=== PATIENT | female | born 1985 | race Two or more races ===

== ENCOUNTER 2019-10-25 09:34 | Emergency (ER) | payer SELFPAY ==
--- NOTE | 2019-10-25 11:01 | EDM.PDOC ---
ED HPI GENERAL MEDICAL PROBLEM - General Chief Complaint: Skin Complaint Stated Complaint: LUMP IN BREAST Time Seen by Provider: 10/25/19 10:15 Source of Information: Reports: Patient, RN Notes Reviewed - History of Present Illness INITIAL COMMENTS - FREE TEXT/NARRATIVE: 34-year-old female has been having some mild discomfort of left side of her left breast for about 4 to 5 months. Last day or so she is started feeling what she believes is a "lump or area of swelling left breast. Her big reason for concern in addition to the above symptoms is that there is strong history of breast cancer in her family, 2 aunts and also a grandparent. She is not been otherwise ill. She is not currently breast-feeding. No fever chills nausea or vomiting. No chest pain or difficulty breathing. 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: Musculoskeletal History: Reports: Fibromyalgia Other Musculoskeletal History: dx 2 months ago Neurological History: Reports: None Psychiatric History: Reports: None Endocrine/Metabolic History: Reports: None Hematologic History: Reports: None Immunologic History: Reports: None Oncologic (Cancer) History: Reports: None Dermatologic History: Reports: None - Infectious Disease History Infectious Disease History: Reports: Influenza - Past Surgical History Head Surgeries/Procedures: Reports: None HEENT Surgical History: Reports: None GI Surgical History: Reports: Cholecystectomy Social & Family History - Family History HEENT: Reports: None Cardiac: Reports: Hypertension Respiratory: Reports: None GI: Reports: None : Reports: None OBGYN: Reports: None Musculoskeletal: Reports: None Neurological: Reports: None Endocrine/Metabolic: Reports: Diabetes, type II Immunologic: Reports: None Oncologic: Reports: Breast - Tobacco Use Smoking Status *Q: Never Smoker - Caffeine Use Caffeine Use: Reports: None - Recreational Drug Use Recreational Drug Use: No ED ROS GENERAL - Review of Systems Review Of Systems: See Below Constitutional: Denies: Fever, Chills HEENT: Reports: No Symptoms Respiratory: Reports: No Symptoms Cardiovascular: Reports: No Symptoms GI/Abdominal: Reports: No Symptoms Musculoskeletal: Reports: No Symptoms Skin: Denies: Rash, Erythema Neurological: Reports: No Symptoms ED EXAM, SKIN/RASH Exam: See Below General Appearance: Alert, Anxious Head: Atraumatic. No: Facial Swelling Neck: Supple Respiratory/Chest: No Respiratory Distress, Lungs Clear, Normal Breath Sounds, Other (breast exam: No visible swelling, no warmth or erythema, very mild density palpable lateral L breast, nontender) Cardiovascular: Regular Rate, Rhythm Course - Vital Signs Last Recorded V/S: Last Vital Signs Temp 97.8 F 10/25/19 09:44 Pulse 93 10/25/19 09:44 Resp 16 10/25/19 09:44 BP 119/75 10/25/19 09:44 Pulse Ox 97 10/25/19 09:44 - Re-Assessments/Exams Free Text/Narrative Re-Assessment/Exam: 10/25/19 19:35 have written order for mamogram. Her worry is accentuated by strong family hx of breast cancer in her family. Discharge instr. as documented. Departure - Departure Time of Disposition: 10:58 Disposition: Home, Self-Care 01 Condition: Fair Clinical Impression: Breast pain, left, Breast lump in female - Discharge Information Instructions: Breast Tenderness Referrals: PCP,None [Primary Care Provider] - Forms: ED Department Discharge Additional Instructions: Order has been sent to Radiology for breast mamogram. Radiology should call you Sunday morning to give you a time to come in and have that done. I you have not heard from Radiology by 9 AM this coming sunday call ED at [phone] to let us make sure that appointment gets made in a timely manor. You will need to follow up with a clinic provider for results 1 day or more after the mamogram has been done. Call clinic for appointment. Sepsis Event Note - Evaluation Sepsis Screening Result: No Definite Risk - Focused Exam Vital Signs: Vital Signs Temp Pulse Resp BP Pulse Ox 10/25/19 09:44 97.8 F 93 16 119/75 97 Date Exam was Performed: 10/25/19 Time Exam was Performed: 19:31
== END 2019-10-25 11:15 | disposition home or self-care (01) ==
LOC: JD.ED 09:34
DX: N63.20 Unspecified lump in the left breast, unspecified quadrant (principal); N64.4 Mastodynia; Z79.899 Other long term (current) drug therapy
CPT/HCPCS: 99282

== ENCOUNTER 2020-05-15 14:37 | Emergency (ER) | payer SELFPAY ==
--- NOTE | 2020-05-15 15:38 | EDM.PDOC ---
ED HPI GENERAL MEDICAL PROBLEM - General Chief Complaint: Respiratory Problem Stated Complaint: COVID + SOB AND CHILLS Time Seen by Provider: 05/15/20 15:20 Source of Information: Reports: Patient History Limitations: Reports: No Limitations - History of Present Illness INITIAL COMMENTS - FREE TEXT/NARRATIVE: Patient is a 34-year-old female with a history of COVID for the past 13 days who presents to the ED complaining of sinus congestion, runny nose, postnasal drip, mild sore throat, dry cough with no shortness of breath, chest pain, or fever. Patient has been mildly fatigued. Patient has been drinking fluids. She notes her appetite is slightly poor. She is had no voiding symptoms. Intermittent diarrhea noted. Fevers and body aches have resolved. She is here for further evaluation with concerns of continued sinus congestion, headache, and fatigue. Patient has a history of fibromyalgia currently on meloxicam and gabapentin. Also reports a history of hypothyroidism. She denies being . She is on control. Headache Pain Score (Numeric/FACES): 10 - Related Data Allergies Allergy/AdvReac Type Severity Reaction Status Date / Time No Known Allergies Allergy Verified 05/15/20 14:57 Home Meds: Home Meds Gabapentin [Neurontin] 600 mg PO BID 10/25/19 [History] Meloxicam [Mobic] 15 mg PO DAILY 10/25/19 [History] Albuterol [Proventil HFA] 2 puff INH Q4H PRN #1 inhaler 05/15/20 [Rx] predniSONE [Prednisone] 2 tab PO QAM #10 tablet 05/15/20 [Rx] Past Medical History HEENT History: Reports: None Cardiovascular History: Reports: None Respiratory History: Reports: None Gastrointestinal History: Reports: Cholelithiasis Genitourinary History: Reports: 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: Musculoskeletal History: Reports: Fibromyalgia Other Musculoskeletal History: dx 2 months ago Neurological History: Reports: None Psychiatric History: Reports: None Endocrine/Metabolic History: Reports: None, Hypothyroidism Hematologic History: Reports: None Immunologic History: Reports: None Oncologic (Cancer) History: Reports: None Dermatologic History: Reports: None - Infectious Disease History Infectious Disease History: Reports: Influenza - Past Surgical History Head Surgeries/Procedures: Reports: None HEENT Surgical History: Reports: None GI Surgical History: Reports: Cholecystectomy Social & Family History - Family History HEENT: Reports: None Cardiac: Reports: Hypertension Respiratory: Reports: None GI: Reports: None : Reports: None OBGYN: Reports: None Musculoskeletal: Reports: None Neurological: Reports: None Endocrine/Metabolic: Reports: Diabetes, type II Immunologic: Reports: None Oncologic: Reports: Breast - Tobacco Use Smoking Status *Q: Never Smoker Second Hand Smoke Exposure: No - Caffeine Use Caffeine Use: Reports: None - Recreational Drug Use Recreational Drug Use: No ED ROS GENERAL - Review of Systems Review Of Systems: Comprehensive ROS is negative, except as noted in HPI. ED EXAM, GENERAL - Physical Exam Exam: See Below Exam Limited By: No Limitations General Appearance: Alert, WD/WN, No Apparent Distress Eye Exam: Bilateral Eye: Normal Inspection Ears: Normal External Exam, Normal Canal, Hearing Grossly Normal, Normal TMs Nose: Normal Inspection, Normal Mucosa, Clear Rhinorrhea Throat/Mouth: Normal Inspection, Normal Oropharynx, Normal Voice, No Airway Compromise, Other (No exudates, redness, or swelling noted. Postnasal drip noted.) Head: Atraumatic, Normocephalic Neck: Normal Inspection, Supple, Non-Tender, Full Range of Motion, Lymphadenopathy (L), Lymphadenopathy (R) Respiratory/Chest: No Respiratory Distress, Lungs Clear, Normal Breath Sounds, No Accessory Muscle Use, Chest Non-Tender Cardiovascular: Normal Peripheral Pulses, Regular Rate, Rhythm, No Murmur Peripheral Pulses: 2+: Radial (R) GI/Abdominal: Normal Bowel Sounds, Soft, Non-Tender Extremities: Normal Inspection Neurological: Alert, Oriented, Normal Cognition, No Motor/Sensory Deficits Psychiatric: Normal Affect, Normal Mood Skin Exam: Warm, Dry, Intact, Normal Color, No Rash Course - Vital Signs Last Recorded V/S: Last Vital Signs Temp 98.1 F 05/15/20 14:49 Pulse 89 05/15/20 14:49 Resp 16 05/15/20 14:49 BP 113/69 05/15/20 14:49 Pulse Ox 95 05/15/20 14:49 - Radiology Interpretation Free Text/Narrative:: Vital signs blood pressure 113/69, heart rate 89, respiratory rate 16, O2 sats 95% on room air. Temperature 98.1. Patient has been positive for COVID for 13 days. Complains of mild headache, sinus congestion, mild sore throat, and persisting dry cough. She has no shortness of breath, chest pain, fever, nausea or vomiting, or dysuria. She has been drinking the fluids. Appetite is improving. She is wondering why symptoms are persisting. Based on exam and vital signs. I do not believe patient would warrant labs or imaging at this time. I believe this is the residual effects of COVID 19. I do not believe she has pneumonia since she is afebrile and not short of breath. I have opted to treat the patient with prednisone 40 mg 1 tab every day for 5 days. Proventil inhaler 2 puffs every 4 hours as needed for cough. She will continue with Mucinex 600 mg 1 tab twice a day. She will start Flonase 1 spray to each nare twice a day. I have asked the patient to use Tylenol on a more frequent basis. Return precautions were discussed with the patient. She voiced her understanding's and has no further questions or concerns. She agrees with plan. Will follow up with PCP later this week if symptoms persist. I suspect symptoms should improve over the next week. Departure - Departure Time of Disposition: 15:33 Disposition: Home, Self-Care 01 Condition: Good Clinical Impression: COVID-19 - Discharge Information Prescriptions: predniSONE [Prednisone] 2 tab PO QAM #10 tablet Albuterol [Proventil HFA] 2 puff INH Q4H PRN #1 inhaler PRN Reason: Cough Instructions: COVID-19 Frequently Asked Questions, Upper Respiratory Infection, Adult, [id number], Prevent the Spread of COVID-19 if You Are Sick - [facility] Forms: ED Department Discharge Additional Instructions: Due to the persistent dry cough I will go ahead and prescribe you prednisone 40 mg 1 tab every day x5 days and also albuterol inhaler 2 puffs every 4 hours. Just taking Tylenol 650 mg every 4-6 hours. Utilize Flonase 1 spray to each nare twice a day. Ensure adequate rest and eat a balanced diet. This is day 13 and you should see symptoms gradually improving over the next week. No lab work is obtained since you are not short of breath and you have not been feverish. Please follow-up with your PCP over the next week if symptoms persist. If you develop any new or worsening symptoms please return back to the ED for further evaluation. Sepsis Event Note (ED) - Evaluation Sepsis Screening Result: No Definite Risk - Focused Exam Vital Signs: Vital Signs Temp Pulse Resp BP Pulse Ox 05/15/20 14:49 98.1 F 89 16 113/69 95
== END 2020-05-15 16:00 | disposition home or self-care (01) ==
LOC: JD.ED 14:37
DX: U07.1 COVID-19 (principal); Z90.49 Acquired absence of other specified parts of digestive tract
CPT/HCPCS: 99283

== ENCOUNTER 2020-05-20 09:00 | Emergency (ER) | payer SELFPAY ==
[2020-05-20] MEDS ORDERED: diphenhydrAMINE 50 MG/ML SDV IM ONE (09:32)
[2020-05-20] MEDS ORDERED: Ketorolac 60 MG/2 ML SDV IM ONE (09:32)
[2020-05-20] MEDS ORDERED: Metoclopramide 10 MG/2 ML SDV IM ONE (09:32)
--- NOTE | 2020-05-20 09:42 | EDM.PDOC ---
ED HPI GENERAL MEDICAL PROBLEM - General Chief Complaint: Headache Stated Complaint: COVID + Time Seen by Provider: 05/20/20 09:08 Source of Information: Reports: Patient History Limitations: Reports: No Limitations - History of Present Illness INITIAL COMMENTS - FREE TEXT/NARRATIVE: The patient presents with a cough, congestion and sore throat. About 23 days ago her tested positive for COVID 19. Two days later she started having symptoms. These symptoms have not gotten much better. She also has a bad headache in the frontal region. She has no numbness or weakness. She has a history of hypothyroidism. She has no history of asthma. Onset: Gradual Duration: Week(s): Location: Reports: Head Severity: Moderate Improves with: Reports: None Worsens with: Reports: None Associated Symptoms: Reports: Cough, Headaches. Denies: Chest Pain, Fever/Chills, Nausea/Vomiting, Shortness of Breath Headache Pain Score (Numeric/FACES): 8 - Related Data Allergies Allergy/AdvReac Type Severity Reaction Status Date / Time No Known Allergies Allergy Verified 05/15/20 14:57 Home Meds: Home Meds Gabapentin [Neurontin] 600 mg PO BID 10/25/19 [History] Meloxicam [Mobic] 15 mg PO DAILY 10/25/19 [History] Albuterol [Proventil HFA] 2 puff INH Q4H PRN #1 inhaler 05/15/20 [Rx] predniSONE [Prednisone] 2 tab PO QAM #10 tablet 05/15/20 [Rx] Past Medical History HEENT History: Reports: None Cardiovascular History: Reports: None Respiratory History: Reports: None Gastrointestinal History: Reports: Cholelithiasis Genitourinary History: Reports: 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: Musculoskeletal History: Reports: Fibromyalgia Other Musculoskeletal History: dx 2 months ago Neurological History: Reports: None Psychiatric History: Reports: None Endocrine/Metabolic History: Reports: Hypothyroidism Hematologic History: Reports: None Immunologic History: Reports: None Oncologic (Cancer) History: Reports: None Dermatologic History: Reports: None - Infectious Disease History Infectious Disease History: Reports: Chicken Pox, Novel Coronavirus - Past Surgical History GI Surgical History: Reports: Cholecystectomy Endocrine Surgical History: Reports: Thyroidectomy Social & Family History - Family History HEENT: Reports: None Cardiac: Reports: Hypertension Respiratory: Reports: None GI: Reports: None : Reports: None OBGYN: Reports: None Musculoskeletal: Reports: None Neurological: Reports: None Endocrine/Metabolic: Reports: Diabetes, type II Immunologic: Reports: None Oncologic: Reports: Breast - Tobacco Use Smoking Status *Q: Never Smoker Second Hand Smoke Exposure: No - Caffeine Use Caffeine Use: Reports: Coffee - Recreational Drug Use Recreational Drug Use: No ED ROS GENERAL - Review of Systems Review Of Systems: See Below Constitutional: Reports: No Symptoms HEENT: Reports: No Symptoms Respiratory: Reports: No Symptoms Cardiovascular: Reports: No Symptoms Endocrine: Reports: No Symptoms GI/Abdominal: Reports: No Symptoms : Reports: No Symptoms Musculoskeletal: Reports: No Symptoms Skin: Reports: No Symptoms Neurological: Reports: Headache - Physical Exam Exam: See Below Exam Limited By: No Limitations General Appearance: Alert, No Apparent Distress Ears: Normal External Exam Nose: Normal Inspection Head Exam: Atraumatic, Normocephalic Neck: Normal Inspection Respiratory/Chest: No Respiratory Distress, Lungs Clear, Normal Breath Sounds Cardiovascular: Regular Rate, Rhythm, No Edema, No Murmur GI/Abdominal: Normal Bowel Sounds, Soft, Non-Tender, No Organomegaly Neuro Exam (Abbreviated): Alert, Oriented, No Motor/Sensory Deficits Course - Vital Signs Last Recorded V/S: Last Vital Signs Temp 98.1 F 05/20/20 09:00 Pulse 91 05/20/20 09:00 Resp 24 H 05/20/20 09:00 BP 114/76 05/20/20 09:00 Pulse Ox 99 05/20/20 09:00 - Orders/Labs/Meds Orders: Active Orders 24 hr Category Date Time Status Ketorolac [Toradol] Med 05/20/20 09:32 Once 60 mg IM ONETIME ONE Metoclopramide [Reglan] Med 05/20/20 09:32 Once 10 mg IM ONETIME ONE diphenhydrAMINE [Benadryl] Med 05/20/20 09:32 Once 50 mg IM ONETIME ONE Medication Orders Diphenhydramine HCl (Benadryl) 50 mg IM ONETIME ONE Stop: 05/20/20 09:33 Ketorolac Tromethamine (Toradol) 60 mg IM ONETIME ONE Stop: 05/20/20 09:33 Metoclopramide HCl (Reglan) 10 mg IM ONETIME ONE Stop: 05/20/20 09:33 Meds: Medications Generic Name Dose Route Start Last Admin Trade Name Valdo PRN Reason Stop Dose Admin Diphenhydramine HCl 50 mg 05/20/20 09:32 Benadryl IM 05/20/20 09:33 ONETIME ONE Ketorolac Tromethamine 60 mg 05/20/20 09:32 Toradol IM 05/20/20 09:33 ONETIME ONE Metoclopramide HCl 10 mg 05/20/20 09:32 Reglan IM 05/20/20 09:33 ONETIME ONE - Re-Assessments/Exams Free Text/Narrative Re-Assessment/Exam: 05/20/20 09:37 Her oxygen saturations are great here. I think she is doing good. I will give her toradol 60mg IM, benadryl 50mg IM and reglan 10mg IM for her headache. Departure - Departure Time of Disposition: 09:45 Disposition: Home, Self-Care 01 Condition: Good Clinical Impression: COVID-19 Headache Qualifiers: Headache type: other headache syndrome Qualified Code(s): G44.89 - Other headache syndrome - Discharge Information *PRESCRIPTION DRUG MONITORING PROGRAM REVIEWED*: Not Applicable *COPY OF PRESCRIPTION DRUG MONITORING REPORT IN PATIENT SHAGGY: Not Applicable Referrals: Lili Thomas, [employer]ER [Nurse Practitioner] - 1 Week Additional Instructions: Take tylenol or motrin for pain or fever. Drink plenty of fluids. Please return if you are worse. Sepsis Event Note (ED) - Evaluation Sepsis Screening Result: No Definite Risk - Focused Exam Vital Signs: Vital Signs Temp Pulse Resp BP Pulse Ox 05/20/20 09:00 98.1 F 91 24 H 114/76 99 - My Orders Last 24 Hours: My Active Orders 05/20/20 09:32 Ketorolac [Toradol] 60 mg IM ONETIME ONE Metoclopramide [Reglan] 10 mg IM ONETIME ONE diphenhydrAMINE [Benadryl] 50 mg IM ONETIME ONE - Assessment/Plan Last 24 Hours: My Active Orders 05/20/20 09:32 Ketorolac [Toradol] 60 mg IM ONETIME ONE Metoclopramide [Reglan] 10 mg IM ONETIME ONE diphenhydrAMINE [Benadryl] 50 mg IM ONETIME ONE
== END 2020-05-20 10:20 | disposition home or self-care (01) ==
LOC: JD.ED 09:00
DX: U07.1 COVID-19 (principal); G44.89 Other headache syndrome; Z79.899 Other long term (current) drug therapy
CPT/HCPCS: 96372; 99283; J1200; J1885; J2765

== ENCOUNTER 2020-05-25 09:11 | Emergency (ER) | payer SELFPAY ==
[2020-05-25] MEDS ORDERED: FLU VACC QS2020-21(6MOS UP)/PF 60 MCG/0.5 ML SYRINGE IM ONE (09:45)
--- NOTE | 2020-05-25 11:32 | EDM.PDOC ---
ED HPI GENERAL MEDICAL PROBLEM - General Chief Complaint: Respiratory Problem Stated Complaint: COVID + /NOT FEELING WELL Time Seen by Provider: 05/25/20 10:27 - History of Present Illness INITIAL COMMENTS - FREE TEXT/NARRATIVE: 34-year-old female presents the emergency room not getting any better. Patient's was diagnosed with COVID 26 days ago he got better but the patient did not. Patient has never been actually tested for COVID but was assumed to be positive. She is still coughing not as bad as she used to. What is bothering her most today she still has dry uncomfortable throat and upper airway congestion. Despite having the cough she really denies any chest pain or chest pressure and certainly no shortness of breath. She had some loose stools early on with the illness but this seems to have completely resolved. At this time the patient completely denies any possibility of . Throat Pain Score (Numeric/FACES): 9 - Related Data Allergies Allergy/AdvReac Type Severity Reaction Status Date / Time No Known Allergies Allergy Verified 05/25/20 09:26 Home Meds: Home Meds Gabapentin [Neurontin] 600 mg PO DAILY 10/25/19 [History] Meloxicam [Mobic] 15 mg PO DAILY 10/25/19 [History] Albuterol [Proventil HFA] 2 puff INH Q4H PRN #1 inhaler 05/15/20 [Rx] Levothyroxine [Synthroid] 1 tab PO DAILY 05/25/20 [History] Past Medical History HEENT History: Reports: None Cardiovascular History: Reports: None Respiratory History: Reports: None Gastrointestinal History: Reports: Cholelithiasis Genitourinary History: Reports: None [employer]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: Musculoskeletal History: Reports: Fibromyalgia Other Musculoskeletal History: dx 2 months ago Neurological History: Reports: None Psychiatric History: Reports: None Endocrine/Metabolic History: Reports: Hypothyroidism Hematologic History: Reports: None Immunologic History: Reports: None Oncologic (Cancer) History: Reports: None Dermatologic History: Reports: None - Infectious Disease History Infectious Disease History: Reports: Chicken Pox - Past Surgical History Head Surgeries/Procedures: Reports: None GI Surgical History: Reports: Cholecystectomy Endocrine Surgical History: Reports: Thyroidectomy Social & Family History - Family History HEENT: Reports: None Cardiac: Reports: Hypertension Respiratory: Reports: None GI: Reports: None : Reports: None OBGYN: Reports: None Musculoskeletal: Reports: None Neurological: Reports: None Endocrine/Metabolic: Reports: Diabetes, type II Immunologic: Reports: None Oncologic: Reports: Breast - Tobacco Use Tobacco Use Status *Q: Never Tobacco User Second Hand Smoke Exposure: No - Caffeine Use Caffeine Use: Reports: None - Recreational Drug Use Recreational Drug Use: No ED ROS GENERAL - Review of Systems Review Of Systems: See Below Constitutional: Reports: Weakness, Fatigue. Denies: No Symptoms, Fever, Chills HEENT: Reports: Rhinitis, Throat Pain Respiratory: Reports: Cough. Denies: No Symptoms, Shortness of Breath, Sputum Cardiovascular: Reports: No Symptoms Endocrine: Reports: Fatigue GI/Abdominal: Reports: No Symptoms : Reports: No Symptoms Musculoskeletal: Reports: No Symptoms Skin: Reports: No Symptoms Neurological: Reports: No Symptoms ED EXAM, GENERAL - Physical Exam Exam: See Below Exam Limited By: No Limitations General Appearance: Alert, No Apparent Distress Eye Exam: Bilateral Eye: Normal Inspection Ears: Normal External Exam, Normal Canal, Hearing Grossly Normal, Normal TMs Nose: Normal Inspection, Normal Mucosa, No Blood Throat/Mouth: Normal Inspection, Normal Lips, Normal Teeth, Normal Gums, Normal Oropharynx, Normal Voice, No Airway Compromise Head: Atraumatic, Normocephalic Neck: Normal Inspection, Supple, Non-Tender, Full Range of Motion. No: Lymphadenopathy (L), Lymphadenopathy (R) Respiratory/Chest: No Respiratory Distress, Lungs Clear, Normal Breath Sounds Cardiovascular: Regular Rate, Rhythm, No Edema, No Murmur GI/Abdominal: Normal Bowel Sounds, Soft, Non-Tender Back Exam: Normal Inspection. No: CVA Tenderness (L), CVA Tenderness (R) Extremities: Normal Inspection, No Pedal Edema Neurological: Alert, Oriented, Normal Cognition Course - Vital Signs Last Recorded V/S: Last Vital Signs Temp 37.2 C 05/25/20 09:20 Pulse 103 H 05/25/20 09:20 Resp 18 05/25/20 09:20 BP 115/92 H 05/25/20 09:20 Pulse Ox 99 05/25/20 09:20 - Orders/Labs/Meds Orders: Active Orders 24 hr Category Date Time Status Influenza Vaccine Charge [RC] .DISCHARGE Care 05/25/20 09:36 Active Chest 1V Frontal [CR] Stat Exams 10/13/20 11:15 Taken CORONAVIRUS COVID-19 PCR PHL Stat Lab 05/25/20 11:54 Ordered CULTURE THROAT [RM] Stat Lab 05/25/20 13:11 Ordered Isolation [COMM] Routine Oth 05/25/20 11:17 Ordered Labs: Laboratory Tests 05/25/20 05/25/20 05/25/20 Range/Units 11:34 11:34 11:34 WBC 7.64 (3.98-10.04) K/mm3 RBC 4.28 (3.98-5.22) M/mm3 Hgb 12.7 (11.2-15.7) gm/dl Hct 39.5 (34.1-44.9) % MCV 92.3 (79.4-94.8) fl MCH 29.7 (25.6-32.2) pg MCHC 32.2 (32.2-35.5) g/dl RDW Std Deviation 45.9 (36.4-46.3) fL Plt Count 320 (182-369) K/mm3 MPV 10.3 (9.4-12.3) fl Neutrophils % (Manual) 57 (40-60) % Band Neutrophils % 0 (0-10) % Lymphocytes % (Manual) 33 (20-40) % Atypical Lymphs % 0 % Monocytes % (Manual) 9 (2-10) % Eosinophils % (Manual) 1 (0.7-5.8) % Basophils % (Manual) 0 L (0.1-1.2) Platelet Estimate Adequate RBC Morph Comment Normal Sodium 139 (136-145) mEq/L Potassium 4.3 (3.5-5.1) mEq/L Chloride 104 (98-107) mEq/L Carbon Dioxide 26 (21-32) mEq/L Anion Gap 13.3 (5-15) BUN 13 (7-18) mg/dL Creatinine 0.7 (0.55-1.02) mg/dL Est Cr Clr Drug Dosing 94.56 mL/min Estimated GFR (MDRD) > 60 (>60) mL/min BUN/Creatinine Ratio 18.6 H (14-18) Glucose 91 (74-106) mg/dL Calcium 8.9 (8.5-10.1) mg/dL Ferritin 20 (8-252) ng/ml Total Bilirubin 0.3 (0.2-1.0) mg/dL AST 27 (15-37) U/L ALT 52 (14-59) U/L Alkaline Phosphatase 61 (46-116) U/L Lactate Dehydrogenase 122 (81-234) U/L C-Reactive Protein <0.2 (<1.0) mg/dL Total Protein 6.8 (6.4-8.2) g/dl Albumin 3.5 (3.4-5.0) g/dl Globulin 3.3 gm/dL Albumin/Globulin Ratio 1.1 (1-2) Meds: Medications Discontinued Medications Generic Name Dose Route Start Last Admin Trade Name Freq PRN Reason Stop Dose Admin Influenza Virus Vaccine 60 mcg 05/25/20 09:45 Fluzone Quad [id number] Syringe IM 05/25/20 09:46 .ONCE ONE - Re-Assessments/Exams Free Text/Narrative Re-Assessment/Exam: 05/25/20 13:12 X-rays unremarkable laboratory evaluation is unremarkable. COVID screen is pending and throat culture pending. Departure - Departure Time of Disposition: 13:13 Disposition: Home, Self-Care 01 Clinical Impression: Pharyngitis, Viral illness - Discharge Information Referrals: PCP,None [Primary Care Provider] - Forms: ED Department Discharge Additional Instructions: Return to the emergency room with any questions problems or worsening symptoms. Coronavirus test is pending and a throat culture is pending. Push lots of fluids. Establish with a local healthcare provider and follow-up in 1 week to establish care and discuss how you are feeling at that time. Sepsis Event Note (ED) - Evaluation Sepsis Screening Result: No Definite Risk - Focused Exam Vital Signs: Vital Signs Temp Pulse Resp BP Pulse Ox 05/25/20 09:20 37.2 C 103 H 18 115/92 H 99 - My Orders Last 24 Hours: My Active Orders 05/25/20 09:36 Influenza Vaccine Charge [RC] .DISCHARGE 05/25/20 11:15 Chest 1V Frontal [CR] Stat 05/25/20 11:17 Isolation [COMM] Routine 05/25/20 11:54 CORONAVIRUS COVID-19 PCR PHL Stat 05/25/20 13:11 CULTURE THROAT [RM] Stat - Assessment/Plan Last 24 Hours: My Active Orders 05/25/20 09:36 Influenza Vaccine Charge [RC] .DISCHARGE 05/25/20 11:15 Chest 1V Frontal [CR] Stat 05/25/20 11:17 Isolation [COMM] Routine 05/25/20 11:54 CORONAVIRUS COVID-19 PCR PHL Stat 05/25/20 13:11 CULTURE THROAT [RM] Stat
--- NOTE | 2020-06-15 16:05 | CR ---
PROCEDURE INFORMATION: Exam: XR Chest, 1 View Exam date and time: 05/25/2020 11:24 AM Age: 34 years old Clinical indication: Cough TECHNIQUE: Imaging protocol: XR of the chest Views: 1 view. COMPARISON: No relevant prior studies available. FINDINGS: Lungs: Unremarkable. No consolidation. Pleural space: Unremarkable. No pleural effusion. No pneumothorax. Heart/Mediastinum: Unremarkable. No cardiomegaly. Bones/joints: Unremarkable. IMPRESSION: No evidence for acute pulmonary disease. COMMENTS: 1. Note the study was performed on 05/25/2020 11:24 AM and is submitted for final review on 06/15/2020. 2. Findings were relayed at time of preliminary interpretation. Thank you for allowing us to participate in the care of your patient. Dictated and Authenticated by: Jp Thompson MD 06/15/2020 2:42 PM Central Time ([place] & [place]) [place]
== END 2020-05-25 13:45 | disposition home or self-care (01) ==
LOC: JD.ED 09:11
DX: U07.1 COVID-19 (principal); J02.9 Acute pharyngitis, unspecified; E03.9 Hypothyroidism, unspecified; Z79.899 Other long term (current) drug therapy
CPT/HCPCS: 36415; 71045; 71045-26; 80053; 82728; 83615; 85007; 85027; 86140; 87070; 87804; 99282; 99283-25; U0002

== ENCOUNTER 2020-05-28 09:33 | Emergency (ER) | payer SELFPAY ==
--- NOTE | 2020-05-28 11:09 | EDM.PDOC ---
ED HPI GENERAL MEDICAL PROBLEM - General Chief Complaint: Respiratory Problem Stated Complaint: SORE THROAT Time Seen by Provider: 05/28/20 09:55 Source of Information: Reports: Patient History Limitations: Reports: No Limitations - History of Present Illness INITIAL COMMENTS - FREE TEXT/NARRATIVE: The patient presents with a sore throat and sinus pressure. She was diagnosed w ith COVID 19 twenty six days ago. She had a cough, fever and shortness of breath. That is better now but she still has a sore throat and sinus pressure and sinus drainage. She has no ear pain. She has no chest pain or shortness of breath. She has no abdominal pain, nausea, vomiting or diarrhea. Onset: Gradual Duration: Day(s): () Location: Reports: Other (throat) Quality: Reports: Sharp Severity: Moderate Improves with: Reports: None Worsens with: Reports: None Associated Symptoms: Denies: Chest Pain, Cough, Fever/Chills, Headaches, Nausea/Vomiting, Shortness of Breath Throat Pain Score (Numeric/FACES): 8 - Related Data Allergies Allergy/AdvReac Type Severity Reaction Status Date / Time No Known Allergies Allergy Verified 05/28/20 09:50 Home Meds: Home Meds Gabapentin [Neurontin] 600 mg PO DAILY 10/25/19 [History] Meloxicam [Mobic] 15 mg PO DAILY 10/25/19 [History] Albuterol [Proventil HFA] 2 puff INH Q4H PRN #1 inhaler 05/15/20 [Rx] Levothyroxine [Synthroid] 1 tab PO DAILY 05/25/20 [History] Amoxicillin 875 mg PO BID #20 tab 05/28/20 [Rx] Past Medical History HEENT History: Reports: None Cardiovascular History: Reports: None Respiratory History: Reports: None Gastrointestinal History: Reports: Cholelithiasis Genitourinary History: Reports: None [employer]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: Musculoskeletal History: Reports: Fibromyalgia Other Musculoskeletal History: dx 2 months ago Neurological History: Reports: None Psychiatric History: Reports: None Endocrine/Metabolic History: Reports: Hypothyroidism Hematologic History: Reports: None Immunologic History: Reports: None Oncologic (Cancer) History: Reports: None Dermatologic History: Reports: None - Infectious Disease History Infectious Disease History: Reports: Novel Coronavirus - Past Surgical History GI Surgical History: Reports: Cholecystectomy Endocrine Surgical History: Reports: Thyroidectomy Social & Family History - Family History HEENT: Reports: None Cardiac: Reports: Hypertension Respiratory: Reports: None GI: Reports: None : Reports: None OBGYN: Reports: None Musculoskeletal: Reports: None Neurological: Reports: None Endocrine/Metabolic: Reports: Diabetes, type II Immunologic: Reports: None Oncologic: Reports: Breast - Tobacco Use Tobacco Use Status *Q: Never Tobacco User Second Hand Smoke Exposure: No - Caffeine Use Caffeine Use: Reports: None - Recreational Drug Use Recreational Drug Use: No ED ROS GENERAL - Review of Systems Review Of Systems: See Below Constitutional: Reports: No Symptoms HEENT: Reports: Throat Pain, Other (sinus congestion and drainage) Respiratory: Reports: No Symptoms Cardiovascular: Reports: No Symptoms Endocrine: Reports: No Symptoms GI/Abdominal: Reports: No Symptoms : Reports: No Symptoms ED EXAM, GENERAL - Physical Exam Exam: See Below Exam Limited By: No Limitations General Appearance: Alert, No Apparent Distress Ears: Normal External Exam Nose: Normal Inspection Throat/Mouth: Other (Oropharynx erythema) Head: Atraumatic, Normocephalic Neck: Normal Inspection, Supple, Non-Tender Respiratory/Chest: No Respiratory Distress, Lungs Clear, Normal Breath Sounds Cardiovascular: Regular Rate, Rhythm, No Edema, No Murmur GI/Abdominal: Soft, Non-Tender, No Organomegaly, No Mass Back Exam: Normal Inspection Extremities: Normal Inspection Course - Vital Signs Last Recorded V/S: Last Vital Signs Temp 97.5 F 05/28/20 09:47 Pulse 85 05/28/20 09:47 Resp 20 05/28/20 09:47 BP 112/71 05/28/20 09:47 Pulse Ox 98 05/28/20 09:47 - Orders/Labs/Meds Orders: Active Orders 24 hr Category Date Time Status CULTURE STREP A CONFIRMATION [RM] Stat Lab 05/28/20 10:15 Results STREP SCRN A RAPID W CULT CONF [RM] Stat Lab 05/28/20 10:15 Results - Re-Assessments/Exams Free Text/Narrative Re-Assessment/Exam: 05/28/20 11:09 I ordered a rapid strep and it is negative. 05/28/20 11:25 The strep is negative. I feel she has a sinus infection and needs antibiotics for that. I will discharge her home. Departure - Departure Time of Disposition: 11:30 Disposition: Home, Self-Care 01 Condition: Good Clinical Impression: Sinusitis Qualifiers: Sinusitis location: frontal Chronicity: acute Recurrence: non-recurrent Qualified Code(s): J01.10 - Acute frontal sinusitis, unspecified - Discharge Information *PRESCRIPTION DRUG MONITORING PROGRAM REVIEWED*: Not Applicable *COPY OF PRESCRIPTION DRUG MONITORING REPORT IN PATIENT SHAGGY: Not Applicable Prescriptions: Amoxicillin 875 mg PO BID #20 tab Referrals: PCP,None [Primary Care Provider] - Forms: ED Department Discharge Additional Instructions: Take the amoxicillin 2 times per day for 10 days. Take motrin or tylenol for pain or fever. You may also try some pseudophed for the congestion and sinus pressure. Please return if you are worse. Sepsis Event Note (ED) - Evaluation Sepsis Screening Result: No Definite Risk - Focused Exam Vital Signs: Vital Signs Temp Pulse Resp BP Pulse Ox 05/28/20 09:47 97.5 F 85 20 112/71 98 - My Orders Last 24 Hours: My Active Orders 05/28/20 10:15 CULTURE STREP A CONFIRMATION [RM] Stat STREP SCRN A RAPID W CULT CONF [RM] Stat - Assessment/Plan Last 24 Hours: My Active Orders 05/28/20 10:15 CULTURE STREP A CONFIRMATION [RM] Stat STREP SCRN A RAPID W CULT CONF [RM] Stat
== END 2020-05-28 11:44 | disposition home or self-care (01) ==
LOC: JD.ED 09:33
DX: J01.10 Acute frontal sinusitis, unspecified (principal); E03.9 Hypothyroidism, unspecified; Z79.899 Other long term (current) drug therapy
CPT/HCPCS: 87081; 87430; 99283

== ENCOUNTER 2020-05-31 19:35 | Emergency (ER) | payer SELFPAY ==
--- NOTE | 2020-05-31 20:48 | EDM.PDOC ---
ED HPI GENERAL MEDICAL PROBLEM - General Chief Complaint: General Stated Complaint: FEVER SIDE AND ABDOMINAL PAIN Time Seen by Provider: 05/31/20 19:57 Source of Information: Reports: Patient History Limitations: Reports: No Limitations - History of Present Illness INITIAL COMMENTS - FREE TEXT/NARRATIVE: The patient presents with a fever, sore throat, lower abdominal pain and d ysuria. The patient has had COVID 19 symptoms for about 30 days. Her tested positive over 30 days ago and she had symptoms starting 30 days ago. She was not tested at that time. She has been seen here about 4 times since then and on the of this month she was officially tested and she was positive. She had more of a sore throat and sinus pain and pressure and she was seen on the . Her strep was negative. She was thought to have sinusitis and started on some amoxicillin. She still has a sore throat, sinus pressure pain and drainage, fever, chills, slight cough and now some lower abdominal pain and dysuria. Onset: Gradual Duration: Week(s): Location: Reports: Abdomen, Other (throat) Quality: Reports: Sharp Severity: Moderate Improves with: Reports: None Worsens with: Reports: None Associated Symptoms: Reports: Cough, Fever/Chills. 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: Musculoskeletal History: Reports: Fibromyalgia Other Musculoskeletal History: dx 2 months ago Neurological History: Reports: None Psychiatric History: Reports: None Endocrine/Metabolic History: Reports: Hypothyroidism Hematologic History: Reports: None Immunologic History: Reports: None Oncologic (Cancer) History: Reports: None Dermatologic History: Reports: None - Infectious Disease History Infectious Disease History: Reports: Novel Coronavirus - Past Surgical History GI Surgical History: Reports: Cholecystectomy Endocrine Surgical History: Reports: Thyroidectomy Social & Family History - Family History HEENT: Reports: None Cardiac: Reports: Hypertension Respiratory: Reports: None GI: Reports: None : Reports: None OBGYN: Reports: None Musculoskeletal: Reports: None Neurological: Reports: None Endocrine/Metabolic: Reports: Diabetes, type II Immunologic: Reports: None Oncologic: Reports: Breast - Tobacco Use Tobacco Use Status *Q: Never Tobacco User - Caffeine Use Caffeine Use: Reports: None ED ROS GENERAL - Review of Systems Review Of Systems: See Below Constitutional: Reports: Fever, Chills HEENT: Reports: Throat Pain Respiratory: Reports: Cough. Denies: Shortness of Breath Cardiovascular: Reports: No Symptoms Endocrine: Reports: No Symptoms GI/Abdominal: Reports: Abdominal Pain. Denies: Nausea, Vomiting : Reports: Dysuria ED EXAM, GENERAL - Physical Exam Exam: See Below Exam Limited By: No Limitations General Appearance: Alert, No Apparent Distress Ears: Normal External Exam Nose: Normal Inspection Throat/Mouth: Normal Inspection Head: Atraumatic, Normocephalic Neck: Normal Inspection Respiratory/Chest: No Respiratory Distress, Lungs Clear, Normal Breath Sounds Cardiovascular: Regular Rate, Rhythm, No Edema, No Murmur GI/Abdominal: Soft, Non-Tender, No Organomegaly, No Mass Back Exam: Normal Inspection Extremities: Normal Inspection Course - Vital Signs Last Recorded V/S: Last Vital Signs Temp 98.9 F 05/31/20 19:50 Pulse 109 H 05/31/20 19:50 Resp 18 05/31/20 19:50 BP 120/73 05/31/20 19:50 Pulse Ox 99 05/31/20 19:50 - Orders/Labs/Meds Labs: Laboratory Tests 05/31/20 Range/Units 20:35 Urine Color Yellow (Yellow) Urine Appearance Clear (Clear) Urine pH 7.5 (5.0-8.0) Ur Specific [place] 1.020 (1.005-1.030) Urine Protein Negative (Negative) Urine Glucose (UA) Negative (Negative) Urine Ketones Negative (Negative) Urine Occult Blood Negative (Negative) Urine Nitrite Negative (Negative) Urine Bilirubin Negative (Negative) Urine Urobilinogen 1.0 (0.2-1.0) Ur Leukocyte Esterase Negative (Negative) - Re-Assessments/Exams Free Text/Narrative Re-Assessment/Exam: 05/31/20 20:48 I have ordered a UA. 10/19/20 21:39 The UA is negative. I will keep her on the medications and have her follow up in 2 days with one of our providers. Departure - Departure Time of Disposition: 21:40 Disposition: Home, Self-Care 01 Condition: Good Clinical Impression: COVID-19 Sinusitis Qualifiers: Sinusitis location: frontal Chronicity: acute Recurrence: non-recurrent Qualified Code(s): J01.10 - Acute frontal sinusitis, unspecified Abdominal pain Qualifiers: Abdominal location: lower abdomen, unspecified Qualified Code(s): R10.30 - Lower abdominal pain, unspecified - Discharge Information Referrals: PCP,None [Primary Care Provider] - Lili Thomas NP [Nurse Practitioner] - 2 Days Forms: ED Department Discharge Additional Instructions: Keep taking the medications. Take tylenol or motrin for pain or fever. Drink plenty of fluids. Please return if you are worse. Sepsis Event Note (ED) - Evaluation Sepsis Screening Result: Possible Sepsis Risk - Focused Exam Vital Signs: Vital Signs Temp Pulse Resp BP Pulse Ox 05/31/20 19:50 98.9 F 109 H 18 120/73 99
== END 2020-05-31 21:50 | disposition home or self-care (01) ==
LOC: JD.ED 19:35
DX: J01.10 Acute frontal sinusitis, unspecified (principal); U07.1 COVID-19; R10.30 Lower abdominal pain, unspecified
CPT/HCPCS: 81003; 99282; 99284

== ENCOUNTER 2021-05-30 08:03 | Emergency (ER) | payer SELFPAY ==
--- NOTE | 2021-05-30 08:46 | EDM.PDOC ---
ED HPI GENERAL MEDICAL PROBLEM - General Chief Complaint: Respiratory Problem Stated Complaint: COVID SYMPTOMS Time Seen by Provider: 05/30/21 08:46 - History of Present Illness INITIAL COMMENTS - FREE TEXT/NARRATIVE: 35-year-old female presents the emergency room with Covid-like symptoms. For now going on 8 days the patient has had a cough this is getting progressively more painful when she coughs. She feels chilled often but is not sure if she has had any fevers. No significant gastrointestinal symptoms. It is unclear if she had loss of taste or smell. She has no underlying medical problems. She denies being she has an IUD in place. Her appetite is diminished. Apparently patient was seen in the walk-in clinic had a Covid test done but the patient is unclear what the results of this were. She has had the vaccine back in October. - Related Data Allergies Allergy/AdvReac Type Severity Reaction Status Date / Time No Known Allergies Allergy Verified 05/30/21 08:27 Home Meds: Home Meds Levothyroxine Sodium [Levoxyl] 50 mcg PO DAILY 05/30/21 [History] Multivitamin [Multi-Vitamin Daily] 1 tab PO DAILY 05/30/21 [History] Past Medical History HEENT History: Reports: None Cardiovascular History: Reports: None Respiratory History: Reports: None Gastrointestinal History: Reports: Cholelithiasis Genitourinary History: Reports: None [employer] History: Reports: Musculoskeletal History: Reports: Fibromyalgia Other Musculoskeletal History: dx 2 months ago Neurological History: Reports: None Psychiatric History: Reports: None Endocrine/Metabolic History: Reports: Hypothyroidism Hematologic History: Reports: None Immunologic History: Reports: None Oncologic (Cancer) History: Reports: None Dermatologic History: Reports: None - Infectious Disease History Infectious Disease History: Reports: Novel Coronavirus - Past Surgical History Head Surgeries/Procedures: Reports: None HEENT Surgical History: Reports: None GI Surgical History: Reports: Cholecystectomy Endocrine Surgical History: Reports: Thyroidectomy Social & Family History - Family History HEENT: Reports: None Cardiac: Reports: Hypertension Respiratory: Reports: None GI: Reports: None : Reports: None OBGYN: Reports: None Musculoskeletal: Reports: None Neurological: Reports: None Endocrine/Metabolic: Reports: Diabetes, type II Immunologic: Reports: None Oncologic: Reports: Breast - Tobacco Use Tobacco Use Status *Q: Never Tobacco User Second Hand Smoke Exposure: No - Caffeine Use Caffeine Use: Reports: Coffee - Recreational Drug Use Recreational Drug Use: No ED ROS GENERAL - Review of Systems Review Of Systems: See Below Constitutional: Reports: Chills, Malaise, Fatigue HEENT: Reports: No Symptoms Respiratory: Reports: Pleuritic Chest Pain Cardiovascular: Reports: No Symptoms Endocrine: Reports: No Symptoms GI/Abdominal: Reports: Decreased Appetite. Denies: Abdominal Pain : Reports: No Symptoms Musculoskeletal: Reports: Other (Generalized aches and pains) Skin: Reports: No Symptoms Neurological: Reports: No Symptoms ED EXAM, GENERAL - Physical Exam Exam: See Below Exam Limited By: Other (Patient has a language barrier but were able to get around this.) General Appearance: Alert, No Apparent Distress Eye Exam: Bilateral Eye: Normal Inspection Ears: Normal External Exam, Normal Canal, Hearing Grossly Normal, Normal TMs Nose: Normal Inspection, Normal Mucosa, No Blood Throat/Mouth: Normal Inspection, Normal Lips, Normal Teeth, Normal Gums, Normal Oropharynx, Normal Voice, No Airway Compromise Head: Atraumatic, Normocephalic Neck: Normal Inspection, Supple, Non-Tender, Full Range of Motion. No: Lymphadenopathy (L), Lymphadenopathy (R) Respiratory/Chest: No Respiratory Distress, Lungs Clear, Normal Breath Sounds Cardiovascular: Regular Rate, Rhythm, No Edema, No Murmur GI/Abdominal: Normal Bowel Sounds, Soft, Non-Tender Extremities: Normal Inspection, No Pedal Edema Neurological: Alert, Oriented, Normal Cognition Course - Vital Signs Last Recorded V/S: Last Vital Signs Temp 37.4 C 05/30/21 08:08 Pulse 99 05/30/21 08:08 Resp 18 05/30/21 08:08 BP 116/89 05/30/21 08:08 Pulse Ox 98 05/30/21 08:08 - Orders/Labs/Meds Orders: Active Orders 24 hr Category Date Time Status Vaccine to be Administered/Admin Charge [RC] ASDIRECTED Care 05/30/21 12:05 Active Labs: Laboratory Tests 05/30/21 05/30/21 05/30/21 Range/Units 09:03 09:14 09:14 WBC 8.97 (3.98-10.04) K/mm3 RBC 4.29 (3.98-5.22) M/mm3 Hgb 13.1 (11.2-15.7) gm/dl Hct 39.4 (34.1-44.9) % MCV 91.8 (79.4-94.8) fl MCH 30.5 (25.6-32.2) pg MCHC 33.2 (32.2-35.5) g/dl RDW Std Deviation 46.8 H (36.4-46.3) fL Plt Count 294 (182-369) K/mm3 MPV 10.1 (9.4-12.3) fl Neut % (Auto) 63.0 (34.0-71.1) % Lymph % (Auto) 27.9 (19.3-51.7) % Alpine % (Auto) 7.8 (4.7-12.5) % Eos % (Auto) 1.0 (0.7-5.8) Baso % (Auto) 0.2 (0.1-1.2) % Neut # (Auto) 5.65 (1.56-6.13) K/mm3 Lymph # (Auto) 2.50 (1.18-3.74) K/mm3 Alpine # (Auto) 0.70 H (0.24-0.36) K/mm3 Eos # (Auto) 0.09 (0.04-0.36) K/mm3 Baso # (Auto) 0.02 (0.01-0.08) K/mm3 D-Dimer, Quantitative 0.29 (0.19-0.50) mg/L Sodium (136-145) mEq/L Potassium (3.5-5.1) mEq/L Chloride (98-107) mEq/L Carbon Dioxide (21-32) mEq/L Anion Gap (5-15) BUN (7-18) mg/dL Creatinine (0.55-1.02) mg/dL Est Cr Clr Drug Dosing mL/min Estimated GFR (MDRD) (>60) mL/min BUN/Creatinine Ratio (14-18) Glucose (70-99) mg/dL Calcium (8.5-10.1) mg/dL Ferritin (8-252) ng/ml Total Bilirubin (0.2-1.0) mg/dL AST (15-37) U/L ALT (14-59) U/L Alkaline Phosphatase (46-116) U/L Lactate Dehydrogenase (81-234) U/L C-Reactive Protein (<1.0) mg/dL Total Protein (6.4-8.2) g/dl Albumin (3.4-5.0) g/dl Globulin gm/dL Albumin/Globulin Ratio (1-2) SARS-CoV-2 RNA (MARYCHUY) Negative (NEGATIVE) 05/30/21 05/30/21 Range/Units 09:14 09:14 WBC (3.98-10.04) K/mm3 RBC (3.98-5.22) M/mm3 Hgb (11.2-15.7) gm/dl Hct (34.1-44.9) % MCV (79.4-94.8) fl MCH (25.6-32.2) pg MCHC (32.2-35.5) g/dl RDW Std Deviation (36.4-46.3) fL Plt Count (182-369) K/mm3 MPV (9.4-12.3) fl Neut % (Auto) (34.0-71.1) % Lymph % (Auto) (19.3-51.7) % Alpine % (Auto) (4.7-12.5) % Eos % (Auto) (0.7-5.8) Baso % (Auto) (0.1-1.2) % Neut # (Auto) (1.56-6.13) K/mm3 Lymph # (Auto) (1.18-3.74) K/mm3 Alpine # (Auto) (0.24-0.36) K/mm3 Eos # (Auto) (0.04-0.36) K/mm3 Baso # (Auto) (0.01-0.08) K/mm3 D-Dimer, Quantitative (0.19-0.50) mg/L Sodium 143 (136-145) mEq/L Potassium 3.8 (3.5-5.1) mEq/L Chloride 110 H (98-107) mEq/L Carbon Dioxide 27 (21-32) mEq/L Anion Gap 9.8 (5-15) BUN 9 (7-18) mg/dL Creatinine 0.6 (0.55-1.02) mg/dL Est Cr Clr Drug Dosing 109.29 mL/min Estimated GFR (MDRD) > 60 (>60) mL/min BUN/Creatinine Ratio 15.0 (14-18) Glucose 94 (70-99) mg/dL Calcium 8.6 (8.5-10.1) mg/dL Ferritin 17 (8-252) ng/ml Total Bilirubin 0.2 (0.2-1.0) mg/dL AST 14 L (15-37) U/L ALT 21 (14-59) U/L Alkaline Phosphatase 45 L (46-116) U/L Lactate Dehydrogenase 145 (81-234) U/L C-Reactive Protein <0.2 (<1.0) mg/dL Total Protein 7.1 (6.4-8.2) g/dl Albumin 3.5 (3.4-5.0) g/dl Globulin 3.6 gm/dL Albumin/Globulin Ratio 1.0 (1-2) SARS-CoV-2 RNA (MARYCHUY) (NEGATIVE) Meds: Medications Discontinued Medications Generic Name Dose Route Start Last Admin Trade Name Freq PRN Reason Stop Dose Admin Influenza Virus Vaccine 60 mcg 05/30/21 12:04 Flu Vacc [id number] 36mos Up/Pf 60 Mcg/0.5 Ml Syringe IM 05/30/21 12:05 .ONCE ONE - Re-Assessments/Exams Free Text/Narrative Re-Assessment/Exam: 05/30/21 12:08 Chest x-ray is unremarkable labs are unremarkable Covid is negative.. Patient requests a flu shot we will update this. Departure - Departure Time of Disposition: 12:08 Disposition: Home, Self-Care 01 Clinical Impression: Viral respiratory illness - Discharge Information Referrals: PCP,None [Primary Care Provider] - Forms: ED Department Discharge Additional Instructions: Return to the emergency room with any questions problems or worsening symptoms. Tylenol and/or Motrin as needed for discomfort. Thank you for getting the Covid vaccine. Push fluids. Sepsis Event Note (ED) - Evaluation Sepsis Screening Result: No Definite Risk - Focused Exam Vital Signs: Vital Signs Temp Pulse Resp BP Pulse Ox 05/30/21 08:08 37.4 C 99 18 116/89 98 - My Orders Last 24 Hours: My Active Orders 05/30/21 12:05 Vaccine to be Administered/Admin Charge [RC] ASDIRECTED - Assessment/Plan Last 24 Hours: My Active Orders 05/30/21 12:05 Vaccine to be Administered/Admin Charge [RC] ASDIRECTED
--- NOTE | 2021-05-30 09:33 | CR ---
Chest: Portable view of the chest was obtained. Comparison: No previous chest imaging is available. Heart size and mediastinum are within normal limits. Lungs are clear with no acute parenchymal change. No acute osseous abnormality is appreciated. Impression: 1. Nothing acute is seen on portable chest x-ray. Diagnostic code #1
[2021-05-30] MEDS ORDERED: FLU Vacc QS2021-22 36MOS UP/PF 60 MCG/0.5 ML Syringe IM ONE (12:04)
== END 2021-05-30 12:37 | disposition home or self-care (01) ==
LOC: JD.ED 08:03
DX: B34.9 Viral infection, unspecified (principal); E03.9 Hypothyroidism, unspecified; Z79.899 Other long term (current) drug therapy; Z20.822 Contact with and (suspected) exposure to COVID-19; Z23 Encounter for immunization
CPT/HCPCS: 36415; 71045; 71045-26; 80053; 82728; 83615; 85025; 85379; 86140; 90471; 90686; 99283-25; U0002

== ENCOUNTER 2021-11-25 16:12 | Emergency (ER) | payer SELFPAY | END 2021-11-25 18:34 | disposition left against medical advice (07) | LOC: JD.ED 16:12 | DX: Z53.21 Procedure and treatment not carried out due to patient leaving prior to being seen by health care provider (principal) ==

== ENCOUNTER 2024-10-15 10:22 | Emergency (ER) | payer SELFPAY ==
[2024-10-15 12:04] LABS: APPEARANCE,URINE CLEAR (Clear); BILIRUBIN,URINE NEGATIVE (Negative); COLOR,URINE LIGHT YELLOW (Yellow); GLUCOSE,URINE NEGATIVE (Negative); KETONES,URINE NEGATIVE (Negative); LEUKOCYTE ESTERASE,URINE NEGATIVE (Negative); NITRITE,URINE NEGATIVE (Negative); OCCULT BLOOD,URINE NEGATIVE (Negative); PROTEIN,URINE NEGATIVE (Negative); UROBILINOGEN,URINE 0.2 (0.2-1.0)
[2024-10-15 12:32] LABS: BASOPHILS PERCENT AUTO 0.7 % (0.0-1.0); EOSINOPHILS ABSOLUTE AUTO 0.1 K/mm3 (0.0-0.4); EOSINOPHILS PERCENT AUTO 1.7 % (0.0-6.0); HEMATOCRIT 39.8 % (37.0-47.0); HEMOGLOBIN 13.5 gm/dl (12.0-16.0); IMMATURE GRAN ABSOLUTE AUTO 0.01 K/mm3 (0.00-0.05); IMMATURE GRAN PERCENT AUTO 0.2 % (0.0-0.4); LYMPHOCYTES ABSOLUTE AUTO 2.4 K/mm3 (1.0-4.8); LYMPHOCYTES PERCENT AUTO 44.4 % (24.0-44.0); MEAN CORPUSCULAR HEMOGLOBIN 30.7 pg (28.0-32.0); MEAN CORPUSCULAR HGB CONC 33.9 g/dl (32.0-36.0); MEAN CORPUSCULAR VOLUME 90.5 fl (83.0-99.0); MEAN PLATELET VOLUME 10.1 fl (9.4-12.3); MONOCYTES ABSOLUTE AUTO 0.3 K/mm3 (0.0-0.8); MONOCYTES PERCENT AUTO 6.3 % (0.0-8.0); NEUTROPHILS ABSOLUTE AUTO 2.5 K/mm3 (1.8-7.7); NEUTROPHILS PERCENT AUTO 46.7 % (41.0-71.0); PLATELET COUNT,PLT 269 K/mm3 (150-400); WHITE BLOOD CELL COUNT,WBC 5.36 K/mm3 (3.9-11.3)
[2024-10-15 12:59] LABS: A/G RATIO 1.1 (1-2); ALANINE AMINOTRANSFERASE,ALT 16 U/L (14-59); ALBUMIN 3.6 g/dl (3.4-5.0); ALKALINE PHOSPHATASE 46 U/L (46-116); ANION GAP 11.9 (5-15); ASPARTATE AMNIOTRANSFERASE,AST 13 U/L (15-37); BILIRUBIN TOTAL 0.4 mg/dL (0.2-1.0); BLOOD UREA NITROGEN,BUN 10 mg/dL (7-18); BUN/CREATININE RATIO 14.3 (14-18); C-REACTIVE PROTEIN <0.05 mg/dL (<0.30); CALCIUM 8.7 mg/dL (8.5-10.1); CARBON DIOXIDE,CO2 26 mEq/L (21-32); CHLORIDE,CL 103 mEq/L (98-107); CREATININE 0.7 mg/dL (0.55-1.02); EST CRCL DRUG DOSING (CG) 78.27 mL/min; ESTIMATED GFR 113 mL/min (>60); GLUCOSE RANDOM 94 mg/dL (70-99); POTASSIUM,K 3.9 mEq/L (3.5-5.1); SODIUM,NA 137 mEq/L (136-145)
== END 2024-10-15 15:00 | disposition home or self-care (01) ==
LOC: JD.ED 10:22
DX: S29.012A Strain of muscle and tendon of back wall of thorax, initial encounter (principal); R10.30 Lower abdominal pain, unspecified; E03.9 Hypothyroidism, unspecified; Z86.16 Personal history of COVID-19; Z79.899 Other long term (current) drug therapy; X58.XXXA Exposure to other specified factors, initial encounter
CPT/HCPCS: 36415; 80053; 81003; 85025; 86140; 99283; 99284

== ENCOUNTER 2025-06-16 09:41 | Emergency (ER) | payer SELFPAY ==
[2025-06-16] MEDS ORDERED: Sodium Chloride 0.9% 10 ML Syringe FLUSH PRN (10:41)
[2025-06-16 10:59] LABS: BASOPHILS ABSOLUTE AUTO 0.1 K/mm3 (0.0-0.2); BASOPHILS PERCENT AUTO 0.8 % (0.0-1.0); EOSINOPHILS ABSOLUTE AUTO 0.1 K/mm3 (0.0-0.4); EOSINOPHILS PERCENT AUTO 1.7 % (0.0-6.0); IMMATURE GRAN ABSOLUTE AUTO 0.01 K/mm3 (0.00-0.05); IMMATURE GRAN PERCENT AUTO 0.2 % (0.0-0.4); LYMPHOCYTES ABSOLUTE AUTO 1.9 K/mm3 (1.0-4.8); LYMPHOCYTES PERCENT AUTO 32.6 % (24.0-44.0); MEAN PLATELET VOLUME 10.3 fl (9.4-12.3); MONOCYTES ABSOLUTE AUTO 0.6 K/mm3 (0.0-0.8); MONOCYTES PERCENT AUTO 10.1 % (0.0-8.0); NEUTROPHILS ABSOLUTE AUTO 3.3 K/mm3 (1.8-7.7); NEUTROPHILS PERCENT AUTO 54.6 % (41.0-71.0); NRBC ABSOLUTE 0.00 (0.00-0.02); NRBC PERCENT 0.0 % (0.0-0.2); PLATELET COUNT,PLT 237 K/mm3 (150-400); RED BLOOD CELL COUNT 4.11 M/mm3 (4.10-5.30); WHITE BLOOD CELL COUNT,WBC 5.96 K/mm3 (3.9-11.3)
[2025-06-16 11:03] LABS: APPEARANCE,URINE CLEAR (Clear); GLUCOSE,URINE NEGATIVE (Negative); OCCULT BLOOD,URINE NEGATIVE (Negative)
[2025-06-16 11:23] LABS: A/G RATIO 1.0 (1-2); ALANINE AMINOTRANSFERASE,ALT 17.0 U/L (14-59); ASPARTATE AMNIOTRANSFERASE,AST 14.0 U/L (15-37); BILIRUBIN TOTAL 0.4 mg/dL (0.2-1.0); BLOOD UREA NITROGEN,BUN 17.0 mg/dL (7-18); CARBON DIOXIDE,CO2 27.0 mEq/L (21-32); CHLORIDE,CL 108.0 mEq/L (98-107); CREATININE 0.8 mg/dL (0.55-1.02); EST CRCL DRUG DOSING (CG) 78.87 mL/min; ESTIMATED GFR 97.0 mL/min (>60); GLUCOSE RANDOM 77.0 mg/dL (70-99); POTASSIUM,K 3.9 mEq/L (3.5-5.1); PROTEIN TOTAL,TP 6.7 g/dl (6.4-8.2); SODIUM,NA 142.0 mEq/L (136-145)
[2025-06-16 11:32] LABS: SQUAMOUS EPITHELIAL CELLS,UR 0-5 /hpf (0-5)
[2025-06-16 17:19] LABS: C. TRACHOMATIS BY PCR NOT DETECTED; N. GONORRHOEAE BY PCR NOT DETECTED
== END 2025-06-16 18:10 | disposition home or self-care (01) ==
LOC: JD.ED 09:41
DX: N83.8 Other noninflammatory disorders of ovary, fallopian tube and broad ligament (principal); R30.0 Dysuria; R82.90 Unspecified abnormal findings in urine; E03.9 Hypothyroidism, unspecified; Z79.890 Hormone replacement therapy; Z79.899 Other long term (current) drug therapy; Z86.16 Personal history of COVID-19
CPT/HCPCS: 36415; 76705; 76705-26; 76775; 76775-26; 76830; 76830-26; 80053; 81001; 81515; 83690; 84703; 85025; 87491; 87591; 99284